=== PATIENT | female | born 1995 | race Caucasian/White ===

== ENCOUNTER 2019-10-18 12:12 | Emergency (ER) | payer BC ==
[~2019-10-18] VITALS: Ht 152.4 cm; Wt 72.6 kg
[2019-10-18 12:15] VITALS: BP 118/69; Ht 152.4 cm; Wt 72.6 kg
== END 2019-10-18 13:20 | disposition home or self-care (01) ==
LOC: ED 12:12
DX: R43.8 Other disturbances of smell and taste (principal); Z20.828 Contact with and (suspected) exposure to other viral communicable diseases
CPT/HCPCS: U0003-CS